=== PATIENT | male | born 1995 | race Hispanic/Latino ===

== ENCOUNTER 2020-03-04 22:03 | Emergency (ER) | payer SELFPAY ==
[2020-03-04 23:08] LABS: Urine Blood 2+ (NEG); Urine Glucose NEGATIVE (NEG); Urine Protein 2+ (NEG); Urine Specific Gravity >1.030 (1.005-1.030)
--- NOTE | 2020-03-04 23:58 | ER ---
Nurse's Notes [facility] Name: Andre Rubio Age: 24 yrs Sex: Male : 1995 Arrival Date: 03/04/2020 Time: 22:08 Bed 23 Private MD: Diagnosis: Dysuria;Encounter for screening for infections with a predominantly sexual mode of transmission Presentation: 03/04 22:37 Chief complaint: Patient states: pain with urination x 2-3 days, pain rated at 2/10, dm5 and after urination the pain lingers. Pt concerned with UTI or STD. Coronavirus screen: Client denies travel out of the [place] in the last 14 days. At this time, the client does not indicate any symptoms associated with coronavirus-19. Ebola Screen: Patient negative for fever greater than or equal to 101.5 degrees Fahrenheit, and additional compatible Ebola Virus Disease symptoms Patient denies exposure to infectious person. Patient denies travel to an Ebola-affected area in the 21 days before illness onset. No symptoms or risks identified at this time. Initial Sepsis Screen: Does the patient meet any 2 criteria? No. Patient's initial sepsis screen is negative. Does the patient have a suspected source of infection? No. Patient's initial sepsis screen is negative. Risk Assessment: Do you want to hurt yourself or someone else? Patient reports no desire to harm self or others. Onset of symptoms was March 02, 2020. 22:37 Method Of Arrival: Ambulatory dm5 22:37 Acuity: BRYANT 3 dm5 - Immunization history:: Flu vaccine status is unknown. - Social history:: Smoking status: unknown. Screenin/20 00:17 Abuse screen: Denies threats or abuse. Denies injuries from another. Nutritional mg2 screening: No deficits noted. Tuberculosis screening: No symptoms or risk factors identified. Fall Risk None identified. Assessment: 00:02 General: Appears in no apparent distress. comfortable, Behavior is calm, cooperative. mg2 Pain: Complains of pain in genital. Neuro: Level of Consciousness is awake, alert, obeys commands, Oriented to person, place, time, situation. Cardiovascular: Capillary refill < 3 seconds Patient's skin is warm and dry. Respiratory: Airway is patent Respiratory effort is even, unlabored, Respiratory pattern is regular, symmetrical. GI: No signs and/or symptoms were reported involving the gastrointestinal system. : Reports pain genital area. EENT: No signs and/or symptoms were reported regarding the EENT system. Derm: Skin is intact, is healthy with good turgor, Skin is pink, warm \T\ dry. normal. Musculoskeletal: Circulation, motion, and sensation intact. Capillary refill < 3 seconds. Vital Signs: 03/04 22:37 BP 143 / 91; Pulse 81; Resp 18; Temp 98.5; Pulse Ox 99% ; Weight 111.13 kg; Height 6 dm5 ft. 3 in. (190.50 cm); Pain 2/10; 22:37 Body Mass Index 30.62 (111.13 kg, 190.50 cm) dm5 ED Course: 22:08 Patient arrived in ED. ag3 22:26 Lenin Crockett PA is PHCP. cp 22:26 Akbar Garza MD is Attending Physician. cp 22:48 Triage completed. dm5 23:49 Vero Magana, CHRISTOPHE is Primary Nurse. dm5 03/05 00:18 Patient has correct armband on for positive identification. Door closed. mg2 00:18 No provider procedures requiring assistance completed. Patient did not have IV access mg2 during this emergency room visit. Administered Medications: 00:03 Drug: Rocephin (cefTRIAXone) 250 mg Route: IM; Site: right gluteus; dm5 00:15 Follow up: Response: No adverse reaction; Medication administered at discharge. mg2 00:03 Drug: Zithromax 1 grams Route: PO; dm5 00:15 Follow up: Response: No adverse reaction; Medication administered at discharge. mg2 Outcome: 03/04 23:57 Discharge ordered by . cp 03/05 00:18 Discharged to home ambulatory. mg2 Condition: stable Discharge instructions given to patient, Instructed on discharge instructions, follow up and referral plans. medication usage, Demonstrated understanding of instructions, follow-up care, medications, Prescriptions given X 1. 00:19 Patient left the ED. mg2 Addendum: 03/10/2020 09:32 Addendum: Culture Results: Positive urine culture. No further action required. Other: a a5 Pt received Zithromax and Rocephin during ER visit and was sent home with doxycycline, culture reviewed by Gwen Randall NP. . Signatures: Vero Magana, RN RN dm5 Li Crespo, RN RN aa5 Lenin Crockett PA PA cp Gardose, Michele, RN RN mg2 Jewell Mir ag3
--- NOTE | 2020-03-04 23:58 | EDPHYS ---
Physician Documentation [facility] Name: Andre Rubio Age: 24 yrs Sex: Male : 1995 Arrival Date: 03/04/2020 Time: 22:08 Bed 23 Private MD: ED Physician Akbar Garza HPI: 03/04 23:53 This 24 yrs old Male presents to ER via Ambulatory with complaints of Urinary cp Problem. 23:53 The patient presents with urinary symptoms, dysuria, penile discharge. cp 23:53 Onset: The symptoms/episode began/occurred 3 day(s) ago. Patient admits to recently cp having unprotected intercourse and is concerned about possible STD. - Immunization history:: Flu vaccine status is unknown. - Social history:: Smoking status: unknown. ROS: 23:55 Constitutional: Negative for body aches, chills, fever. cp 23:55 Abdomen/GI: Negative for abdominal pain, nausea, vomiting, and diarrhea. cp 23:55 : Positive for burning with urination, penile discharge, Negative for testicular pain 23:55 Skin: Negative for rash. 23:55 Neuro: Negative for headache, weakness. 23:55 All other systems are negative. Exam: 23:56 Constitutional: The patient appears in no acute distress, alert, awake, non-toxic, well cp developed, well nourished. 23:56 Head/Face: Normocephalic, atraumatic. cp 23:56 Cardiovascular: Rate: normal. 23:56 Respiratory: the patient does not display signs of respiratory distress, Respirations: normal, no use of accessory muscles, no retractions. 23:56 Abdomen/GI: Inspection: abdomen appears normal, Palpation: abdomen is soft and non-tender, in all quadrants. Vital Signs: 22:37 BP 143 / 91; Pulse 81; Resp 18; Temp 98.5; Pulse Ox 99% ; Weight 111.13 kg; Height 6 dm5 ft. 3 in. (190.50 cm); Pain 2/10; 22:37 Body Mass Index 30.62 (111.13 kg, 190.50 cm) dm5 MDM: 23:53 Patient medically screened. cp 23:56 Differential diagnosis: UTI, prostatitis, urethritis, STD. cp 23:57 Data reviewed: vital signs, nurses notes, lab test result(s), urinalysis. cp 23:57 Counseling: I had a detailed discussion with the patient and/or guardian regarding: the cp historical points, exam findings, and any diagnostic results supporting the discharge/admit diagnosis, lab results, to return to the emergency department if symptoms worsen or persist or if there are any questions or concerns that arise at home. 03/04 22:54 Order name: Urine Culture tt3 03/04 22:54 Order name: Urine Microscopic Only; Complete Time: 00:11 tt3 03/05 00:11 Interpretation: Normal except: UWBC TNTC; URBC >50; UBACT LOADED; MUCUS 3+; AMORPH 2+. cp 03/04 22:57 Order name: Urine Dipstick--Ancillary (enter results); Complete Time: 23:43 tt3 03/04 23:57 Interpretation: Normal except: USPGR >1.030; UBLD 2+; UPROT 2+; UESTR 3+. 03/04 22:54 Order name: Urine Dipstick-Ancillary (obtain specimen); Complete Time: 23:49 tt3 Administered Medications: 03/05 00:03 Drug: Rocephin (cefTRIAXone) 250 mg Route: IM; Site: right gluteus; dm5 00:15 Follow up: Response: No adverse reaction; Medication administered at discharge. mg2 00:03 Drug: Zithromax 1 grams Route: PO; dm5 00:15 Follow up: Response: No adverse reaction; Medication administered at discharge. mg2 Disposition: 00:00 Chart complete. cp 04:54 Co-signature as Attending Physician, Akbar Garza MD. [email or web address] Disposition: 03/04/20 23:57 Discharged to Home. Impression: Dysuria, Encounter for screening for infections with a predominantly sexual mode of transmission. - Condition is Stable. - Discharge Instructions: Dysuria, Sexually Transmitted Disease, Health Maintenance, Male. - Prescriptions for Doxycycline Hyclate 100 mg Oral Tablet - take 1 tablet by ORAL route every 12 hours; 20 tablet. - Medication Reconciliation Form, Thank You Letter, Antibiotic Education, Prescription Opioid Use form. - Follow up: Private Physician; When: 1 - 2 days; Reason: Worsening of condition. - Problem is new. - Symptoms have improved. Signatures: Dispatcher [facility] Vero Tam, RN RN dm5 Lenin Crockett PA PA cp Gardose, Michele, RN RN mg2 Akbar Garza MD MD [email or web address] Trim, Fox tt3 Corrections: (The following items were deleted from the chart) 00:19 03/04 23:57 03/04/2020 23:57 Discharged to Home. Impression: Dysuria; Encounter for mg2 screening for infections with a predominantly sexual mode of transmission. Condition is Stable. Forms are Medication Reconciliation Form, Thank You Letter, Antibiotic Education, Prescription Opioid Use. Follow up: Private Physician; When: 1 - 2 days; Reason: Worsening of condition. Problem is new. Symptoms have improved. cp
[2020-03-04 23:59] LABS: Urine Amorphous Sediment 2+ /HPF (NONE SEEN); Urine Bacteria LOADED /HPF (NONE SEEN); Urine Mucus 3+ /HPF (NONE SEEN); Urine RBC >50 /HPF (NONE SEEN); Urine Yeast FEW (NONE SEEN)
[2020-03-05] MEDS ORDERED: AZITHROMYCIN 250 MG TAB ONE (00:11)
[2020-03-05] MEDS ORDERED: WATER FOR INJ,STERILE 10 ML ONE (00:11)
[2020-03-05] MEDS ORDERED: CEFTRIAXONE 250 MG/VIAL ONE (00:11)
[2020-03-07 04:25] VITALS: BP 143/91; TEMP 98.5; O2SAT 99
== END 2020-03-05 00:19 | disposition home or self-care (01) ==
LOC: ER 22:03
DX: R30.0 Dysuria (principal); Z11.3 Encounter for screening for infections with a predominantly sexual mode of transmission
CPT/HCPCS: 81003; 81015; 87086; 87088; 96372; 99283